=== PATIENT | female | born 1935 | race Caucasian/White ===

== ENCOUNTER 2016-06-01 09:06 | Outpatient (CLI) | payer MEDICARE ==
[2013-03-28 09:37] VITALS: BP 154/84
[2016-06-01 10:08] LABS: eGFR (African) > 60; eGFR (Non-African) > 60
== END 2016-06-01 09:08 ==
LOC: LAB 09:06
PROVIDERS: ATTEND Family Medicine
DX: E78.2 Mixed hyperlipidemia (principal); E03.9 Hypothyroidism, unspecified
CPT/HCPCS: 36415; 80053; 80061; 84443

== ENCOUNTER 2016-06-02 15:34 | Outpatient (CLI) | payer MEDICARE ==
[2013-03-28 09:37] VITALS: BP 154/84
--- NOTE | 2016-06-03 14:48 | OP Clinic Progress Note ---
REFERRING PHYSICIAN: Dr. Ruby Spann REASON FOR VISIT: This 80-year-old lady was seen accompanied by her . She has burning in her throat that has been there for about 5 months. She has some gastrointestinal disorders. She has had EGDs. She has been on Prilosec. She has taken nystatin with no help. Most of her symptoms came on about 5 months ago when she ate [place] food and since then she gets a burning in her throat. It is better in the morning. After she eats, it seems to get worse, with some variability, but fairly constantly during the day. She has a bit of a metallic taste in her mouth. She does elevate the head of her bed. She has taken a variety of proton pump inhibitors. To reduce some of the expense, she has tried Prilosec 40 mg in the morning and 40 mg at night and she has tried Mylanta , all without significant improvement. Using a flexible fiberoptic laryngoscope through the left nostril with a pediatric scope, the tongue base, the oral cavity, pharynx, and larynx are all fairly clear. There is not severe erythema. There is mild edema and erythema of the introitus of the supraglottic larynx but it is really not severe. There is not severe erythema either. The vocal cords themselves are normal. Overall, the larynx itself, along with the hypopharynx, appears to be fairly benign. There is a very mild amount of edema but, again, I would not say it is of a severe degree. The remainder of the fiberoptic laryngoscopy exam was fairly normal. PLAN: The answer is not just simply looking at the larynx. Clinically, it is possible she could have a low grade mild infection. She has not really tried a recent antibiotic at least by her history. I will give her a lower dose of Cipro at 250 mg twice a day for 2 weeks with a renewal. In addition, Carafate can help to coat and seal some ulcers more than the Mylanta and the proton pump inhibitors. It can either be given as a gram tablet for the stomach or sometimes breaking it in half and sucking on half of a 1 gram Carafate tablet 4 times a day can help. It can help both the stomach and it also may help coat the hypopharynx and the esophagus itself. I will see her back in 2 or 3 weeks and see how this plan works and make adjustments going forward. cc: Dr. Ruby SCHROEDER
== END 2016-06-02 15:35 ==
LOC: ENT 15:34
PROVIDERS: ATTEND Otolaryngology
DX: R07.0 Pain in throat (principal); H81.13 Benign paroxysmal vertigo, bilateral
CPT/HCPCS: 31575; G0463

== ENCOUNTER 2017-01-05 12:38 | Outpatient (CLI) | payer MEDICARE ==
[2013-03-28 09:37] VITALS: BP 154/84
[2017-01-05 12:49] LABS: BASOPHILS % 0.6 (0.0-1.5); EOSINOPHILS % 1.4 % (0.0-6.8); MEAN CORPUSCULAR VOLUME 89.1 fl (80.0-100.0); MONOCYTES % 4.8 % (0.0-11.0); NEUTROPHILS # 4.3 # k/uL (1.4-7.7)
[2017-01-05 13:25] LABS: eGFR (African) > 60; eGFR (Non-African) > 60
--- NOTE | 2017-01-06 06:56 | Diagnostic Imaging Report ---
ROBERTO DUFF [facility] [address] [facility] [address] [place], [place]. [address] Report Submission Date: Jan 05, 2017 3:00:00 PM CDT Patient Study Name: STANTON TREJO Date: Jan 05, 2017 2:39:05 PM CDT Modality Type: CT\SR Gender: F Description: CT BRAIN W/O CONTRAST : 33 Institution: [facility] Physician: ROBERTO DUFF Examination: CT head without contrast History: Lightheadedness Comparison exam: None available Technique: Noncontrast head CT protocol. Findings: Ventricles and sulci are appropriate for patient age. Cerebrocerebellar parenchyma demonstrates normal attenuation. No evidence for parenchymal hemorrhage. No evidence for mass or mass effect. No midline shift. No extra axial fluid collections. Partial visualization of the paranasal sinuses , mastoid air cells, orbits, skull and scalp without gross irregularity. Impression: No acute parenchymal process. No hemorrhage. Electronically signed on Jan 05, 2017 3:00:00 PM CDT by: Deonte SCHROEDER
== END 2017-01-05 12:40 ==
LOC: LAB 12:38
PROVIDERS: ATTEND Family Medicine
DX: R42 Dizziness and giddiness (principal)
CPT/HCPCS: 36415; 70450; 80053; 85025

== ENCOUNTER 2017-01-06 07:44 | Outpatient (CLI) | payer MEDICARE ==
[2013-03-28 09:37] VITALS: BP 154/84
[2017-01-06 07:56] LABS: APPEARANCE,URINE Clear (CLEAR); COLOR,URINE Yellow (YELLOW); OCCULT BLOOD,URINE Negative (NEGATIVE); PH URINE 6.5 (5.0 - 8.0); UROBILINOGEN URINE 0.2 Eu (0.2-1.0)
--- NOTE | 2017-01-06 15:10 | Diagnostic Imaging Report ---
ROBERTO DUFF [facility] [address] [facility] 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 The mid abdominal aorta measures 1.7 cm. There is an abdominal aortic aneurysm measuring 3.4 x 3.2 cm with atherosclerotic plaque and thrombus within the aneurysm. The right iliac artery measures 1.4 cm and left iliac measures 1.2 cm Impression: 3.4 x 3.2 cm infrarenal abdominal aortic aneurysm terminating at the aortic bifurcation Electronically signed on Jan 06, 2017 8:40:30 AM CDT by: Frandy SCHROEDER
== END 2017-01-06 07:45 ==
LOC: RAD 07:44
PROVIDERS: ATTEND Family Medicine
DX: R42 Dizziness and giddiness (principal)
CPT/HCPCS: 81002; 93979

== ENCOUNTER 2017-06-02 08:52 | Outpatient (CLI) | payer MEDICARE ==
[2013-03-28 09:37] VITALS: BP 154/84
[2017-06-02 09:46] LABS: eGFR (African) > 60; eGFR (Non-African) > 60
== END 2017-06-02 08:53 ==
LOC: LAB 08:52
PROVIDERS: ATTEND Family Medicine
DX: E78.2 Mixed hyperlipidemia (principal); E03.9 Hypothyroidism, unspecified
CPT/HCPCS: 36415; 80053; 80061; 84443

== ENCOUNTER 2017-07-05 10:58 | Outpatient (CLI) | payer MEDICARE ==
[2013-03-28 09:37] VITALS: BP 154/84
--- NOTE | 2017-07-05 12:59 | Diagnostic Imaging Report ---
ROBERTO DUFF [facility] [address] [facility] [address] [address] Report Submission Date: Jul 05, 2017 11:19:48 AM CDT Patient Study Name: STANTON TREJO Date: Jul 05, 2017 11:01:43 AM CDT Modality Type: DX Gender: F Description: LOWER EXTREMITY : 33 Institution: [facility] Physician: ROBERTO DUFF Right foot 3 views History: 4th metatarsal pain after injury 1 week ago Findings: A nondisplaced right 4th proximal phalangeal neck fracture is observed , best identified on the lateral and oblique views. The remaining right foot is intact without additional fracture or dislocation. Impression: Right 4th proximal phalangeal neck fracture. Electronically signed on Jul 05, 2017 11:19:48 AM CDT by: Russell SCHROEDER
== END 2017-07-05 11:05 ==
LOC: RAD 10:58
PROVIDERS: ATTEND Family Medicine
DX: M79.671 Pain in right foot (principal)
CPT/HCPCS: 73630

== ENCOUNTER 2017-07-26 13:41 | Outpatient (CLI) | payer MEDICARE ==
[2013-03-28 09:37] VITALS: BP 154/84
--- NOTE | 2017-07-26 14:58 | Diagnostic Imaging Report ---
ROBERTO DUFF [facility] [address] [facility] [address] [address] Report Submission Date: Jul 26, 2017 2:12:49 PM CDT Patient Study Name: STANTON TREJO Date: Jul 26, 2017 1:45:00 PM CDT Modality Type: DX Gender: F Description: LOWER EXTREMITY : 33 Institution: [facility] Physician: ROBERTO DUFF Examination: Plain film right foot History: 4TH DIGIT FX ABOUT 4 WEEKS AGO (Hx) Comparison exam: 05 July 2017 Findings: 3 views of the right foot demonstrates osteopenia. Again identified is a cortical irregularity involving the distal margin of the proximal phalanx 4th digit. Articular degenerative changes. Inferior calcaneal spur. Impression: Continued cortical irregularity without change distal margin proximal phalanx 4th digit. Osteopenia and degenerative changes. Electronically signed on Jul 26, 2017 2:12:49 PM CDT by: Deonte SCHROEDER
== END 2017-07-26 13:42 ==
LOC: RAD 13:41
PROVIDERS: ATTEND Family Medicine
DX: S92.901D Unspecified fracture of right foot, subsequent encounter for fracture with routine healing (principal)
CPT/HCPCS: 73630